=== PATIENT | female | born 1960 | race Caucasian/White ===

== ENCOUNTER 2016-03-01 00:15 | Emergency (ER) | payer MEDICARE ==
[2016-03-01] MEDS ORDERED: PROCHLORPERAZINE EDISYLATE INJ 10 MG/2 ML VIAL IV ONE (02:28)
[2016-03-01] MEDS ORDERED: NORMAL SALINE 1000 ML 1,000 ML IV ONE (02:28)
[2016-03-01 04:13] LABS: ABSOLUTE LYMPHOCYTES (AUTO) 0.6 10^3/uL (0.5-4.7); ABSOLUTE MONOCYTES (AUTO) 0.3 10^3/uL (0.1-1.4); ABSOLUTE NEUT (AUTO) 5.2 10^3/uL (1.7-8.2); BASOPHILS % (AUTO) 0.3 % (0-2); HEMATOCRIT 37.9 % (36.0-47.0); HEMOGLOBIN 12.4 g/dL (12.0-15.5); HGB HCT DIFFERENCE -0.7; LYMPHOCYTES % (AUTO) 9.2 % (13-45); MEAN CORPUSCULAR HEMOGLOBIN 29.4 pg (27.0-33.4); MEAN CORPUSCULAR HGB CONC 32.7 g/dL (32.0-36.0); MEAN CORPUSCULAR VOLUME 90 fl (80-97); MONOCYTES % (AUTO) 4.5 % (3-13); RED BLOOD COUNT 4.21 10^6/uL (3.72-5.28); RED CELL DISTRIBUTION WIDTH 14.1 % (11.5-14.0); WHITE BLOOD COUNT 6.1 10^3/uL (4.0-10.5)
[2016-03-01 04:22] LABS: ALANINE AMINOTRANSFERASE 59 U/L (9-52); ALBUMIN 4.3 g/dL (3.5-5.0); ALKALINE PHOSPHATASE 70 U/L (38-126); ANION GAP 11 (5-19); ASPARTATE AMINO TRANSFERASE 41 U/L (14-36); BILIRUBIN,TOTAL 0.6 mg/dL (0.2-1.3); BLOOD UREA NITROGEN 14 mg/dL (7-20); CALCIUM 9.7 mg/dL (8.4-10.2); CARBON DIOXIDE 29 mmol/L (22-30); CHLORIDE 103 mmol/L (98-107); CREATINE KINASE 80 U/L (30-135); CREATININE RESULT 0.84 mg/dL (0.52-1.25); GLUCOSE 111 mg/dL (75-110); POTASSIUM 4.5 mmol/L (3.6-5.0); TOTAL PROTEIN 7.5 g/dL (6.3-8.2)
[2016-03-01 04:33] LABS: CREATINE KINASE MB 0.79 ng/mL (<4.55)
[2016-03-01 04:34] LABS: TROPONIN I < 0.012 ng/mL
[2016-03-01] MEDS ORDERED: DIPHENHYDRAMINE HCL 50 MG/ML VIAL IV ONE (05:04)
[2016-03-01] MEDS ORDERED: KETOROLAC TROMETHAMINE INJ/PF 30 MG/1 ML SDV IV ONE (05:04)
--- NOTE | 2016-03-01 05:10 | ER Document Report ---
ED Seizure - General Mode of Arrival: Wheelchair Information source: Patient, Relative <MANINDER PEREZ - Last Filed: 03/01/16 06:48> <BRENDACICIJACOBO - Last Filed: 03/01/16 08:33> - General Chief Complaint: Probable Seizure Stated Complaint: POSSIBLE SEIZURE Notes: Patient is a 55-year-old female who presents to the ER today for possible seizure that happened 45 minutes prior to arrival. Patient does have a history of seizures, multiple TIAs, HIV, hypertension, hyperlipidemia and noncompliance with her medications. Daughter states that she informed family that she was "about to have one" and then had a blank stare off to the left side for approximately 3-5 minutes not responding to family members. Daughter states that she usually convulses with her seizures but she did not with this one area and she takes Keppra for her seizures but daughters are unsure if she took hers today. Patient complains of being tired and headache which is normal after her seizures. She also admits to numbness and tingling on the right arm and hand, daughter states that she has had this before. Patient denies any chest pain, shortness of breath, facial weakness or numbness. (MANINDER PEREZ) - Related Data Allergies/Adverse Reactions: Sulfa (Sulfonamide Antibiotics) Adverse Reaction (Severe, Verified 03/01/16 03: 09) Anaphylaxis Home Medications: Current Home Medications Aspirin [Ecotrin 81 mg EC Tablet] 81 mg PO DAILY 03/01/16 [History] Calcium Carbonate/Vitamin D3 [Calcium 600 + Vit D 400 Tablet] 1 tab PO DAILY 06/12 [History] Emtricitabine/Tenofovir [Truvada 200 mg-300 mg Tablet] 1 tab PO DAILY 03/01/16 [ History] Enalapril Maleate [Vasotec 2.5 Mg Tablet] 2.5 mg PO Q12 03/01/16 [History] Levetiracetam [Keppra 500 mg Tablet] 1,000 mg PO Q12 03/01/16 [History] Lopinavir/Ritonavir [Kaletra 200-50 mg Tablet] 2 tab PO BID 03/01/16 [History] Loratadine [Claritin] 10 mg PO DAILY 03/01/16 [History] Pravastatin Sodium [Pravachol] 20 mg PO QHS 03/01/16 [History] Past Medical History - General Information source: Patient, Relative - Social History Smoking Status: Unknown if Ever Smoked Patient has suicidal ideation: No Patient has homicidal ideation: No - Past Medical History Cardiac Medical History: Reports: Hx Hypercholesterolemia, Hx Hypertension Neurological Medical History: Reports: Hx Seizures - Immunizations Hx Diphtheria, Pertussis, Tetanus Vaccination: Yes <MANINDER PEREZ - Last Filed: 03/01/16 06:48> - Social History Family History: Reviewed & Not Pertinent <JACOBO MERCER - Last Filed: 03/01/16 08:33> Review of Systems - Review of Systems Constitutional: No symptoms reported EENT: No symptoms reported Cardiovascular: See HPI Respiratory: No symptoms reported Gastrointestinal: No symptoms reported Genitourinary: No symptoms reported Female Genitourinary: No symptoms reported Musculoskeletal: No symptoms reported Skin: No symptoms reported Hematologic/Lymphatic: No symptoms reported Neurological/Psychological: See HPI <MANINDER PEREZ - Last Filed: 03/01/16 06:48> Physical Exam <MANINDER PEREZ - Last Filed: 03/01/16 06:48> <JACOBO MERCER - Last Filed: 03/01/16 08:33> - Vital signs Vitals: Resp 16 03/01/16 03:00 (MANINDER PEREZ) (JACOBO MERCER) - Notes Notes: PHYSICAL EXAMINATION: GENERAL: Appears uncomfortable, but in no acute distress. HEAD: Atraumatic, normocephalic. EYES: Pupils equal round and reactive to light, extraocular movements intact, sclera anicteric, conjunctiva are normal. NECK: Normal range of motion, supple without lymphadenopathy LUNGS: CTAB and equal. No wheezes rales or rhonchi. HEART: Regular rate and rhythm without murmurs ABDOMEN: Soft, no tenderness. No guarding, no rebound BACK: no vertebral tenderness, normal ROM GI/: no CVA tenderness EXTREMITIES: Normal range of motion, no pitting edema. No cyanosis. NEUROLOGICAL: Alert and oriented to person place and time, answering questions appropriately, good and equal strength bilaterally, no facial weakness, Cranial nerves grossly intact. Normal sensory/motor exams. PSYCH: Flat affect SKIN: Warm, Dry, normal turgor, no rashes or lesions noted (MANINDER PEREZ) Course - Laboratory Result Diagrams: 03/01/16 03:45 03/01/16 03:45 <MANINDER PEREZ - Last Filed: 03/01/16 06:48> - Laboratory Result Diagrams: 03/01/16 03:45 03/01/16 03:45 <JACOBO MERCER - Last Filed: 03/01/16 08:33> - Re-evaluation Re-evalutation: 03/01/16 05:11 Labwork is unremarkable today including a normal white blood cell count and normal cardiac enzymes. EKG reveals a normal sinus rhythm at a rate of 91 bpm without evidence of ischemia or abnormality. CAT scan of the head reports no acute change or pathology. Patient appears to be postictal and I believe it is most likely that she had a seizure. I did order a Keppra level and it is pending. Patient states that she does not feel any better after IV fluids and Compazine so I have ordered Benadryl and Toradol. I've advised her that she needs to take her Keppra as directed. 03/01/16 06:48 Upon discharge patient had developed a fever of 102F. Because of this, her seizure activity today and her history of HIV she needs a lumbar puncture and a septic workup at this time. Dr. Mercer has assumed care of this patient. (MANINDER PEREZ) 03/01/16 08:07 I was notified about febrile HIV patient who is unsure of her medications and is non complaint with medication lumbar puncture was performed , (JACOBO MERCER) - Vital Signs Vital signs: Temp Pulse Resp BP Pulse Ox 102.1 F H 100 18 140/76 H 99 03/01/16 06:24 03/01/16 06:24 03/01/16 06:24 03/01/16 06:24 03/01/16 06:24 (MANINDER PEREZ) (JACOBO MERCER) - Laboratory Laboratory results interpreted by me: 03/01/16 03/01/16 03/01/16 03:45 03:45 04:50 RDW 14.1 H Seg Neutrophils % 86.0 H Lymphocytes % 9.2 L Glucose 111 H AST 41 H ALT 59 H Urine Glucose (UA) 50 H (MANINDER PEREZ) (JACOBO MERCER) Procedures - Lumbar Puncture Lumbar puncture Time completed: 08:00 Consent obtained: Yes Lumbar puncture pre-procedure: Sterile PPE donned, Sterile drapes applied Patient position: Lying Needle size: 22 Lumbar puncture location: L4-L5 Anesthetic type: 1% Lidocaine mL's of anesthetic: 5 Amount/type of drainage: 4 Number of attempts: 2 Complications: No <JACOBO MERCER - Last Filed: 03/01/16 08:33> Critical Care Note <MANINDER PEREZ - Last Filed: 03/01/16 06:48> - Critical Care Note Total time excluding time spent on procedures (mins): 55 <JACOBO MERCER - Last Filed: 03/01/16 08:33> - Critical Care Note Comments: 55 minutes of critical care time spent in direct contact evaluating and reevaluating the patient, treating symptoms, reviewing labs and studies and speaking with family and consultants excluding any procedures (JACOBO MERCER ) Discharge <MANINDER PEREZ - Last Filed: 03/01/16 06:48> <JACOBO MERCER - Last Filed: 03/01/16 08:33> - Discharge Clinical Impression: Seizure, Human immunodeficiency virus (HIV) infection, Meningitis Fever Qualifiers: Fever type: unspecified Qualified Code(s): R50.9 - Fever, unspecified Condition: Stable Disposition: [facility] Additional Instructions: Please take your Keppra as you're supposed to. Return immediately for any new or worsening symptoms. Follow up with primary care provider, call tomorrow to make followup appointment.
[2016-03-01 05:21] LABS: APPEARANCE,URINE CLEAR; BILIRUBIN,URINE NEGATIVE (NEGATIVE); GLUCOSE, URINE 50 mg/dL (NEGATIVE); KETONES,URINE NEGATIVE (NEGATIVE); LEUKOCYTE ESTERASE,URINE NEGATIVE (NEGATIVE); NITRITE,URINE NEGATIVE (NEGATIVE); PROTEIN,URINE NEGATIVE (NEGATIVE); URINE SPECIFIC GRAVITY 1.005; UROBILINOGEN,URINE NEGATIVE mg/dL (<2.0)
[2016-03-01] MEDS ORDERED: LIDOCAINE 1% INJ-PF (10 MG/ML) 30 ML SDV INJ ONE (06:30)
[2016-03-01] MEDS ORDERED: VANCOMYCIN HCL INJ 1000 MG VIAL IV ONE ×2 (07:07→08:00)
[2016-03-01] MEDS ORDERED: AMPHOTERICIN B 50 MG VIAL IV ONE (07:08)
[2016-03-01] MEDS ORDERED: CEFTRIAXONE 2 GM/D5W RTU 50 ML IV ONE (07:08)
[2016-03-01] MEDS ORDERED: ACYCLOVIR SODIUM INJ/PF 500 MG/10 ML SDV IV ONE ×2 (07:08→10:00)
[2016-03-01] MEDS ORDERED: ACETAMINOPHEN 325 MG TABLET PO ONE (08:23)
[2016-03-01 09:20] LABS: RBC AVERAGE 10.5; RBC SIDE 1 10; RBC SIDE 2 11
[2016-03-01 09:21] LABS: RBC DILUENT USED NONE USED; RBC DILUTION FACTOR 1; TOTAL RBC SQUARES COUNTED 225
[2016-03-01 09:22] LABS: WHITE BLOOD CELL,CSF 1 /uL (0-5)
[2016-03-01 09:23] LABS: APPEARANCE ALL TUBES CLEAR
[2016-03-01 09:24] LABS: RBC AVERAGE 7.5; RBC DILUENT USED NONE USED; RBC DILUTION FACTOR 1; RBC SIDE 1 8; RBC SIDE 2 7; TOTAL RBC SQUARES COUNTED 225
[2016-03-01 09:25] LABS: WHITE BLOOD CELL,CSF 1 /uL (0-5)
[2016-03-01 09:26] LABS: APPEARANCE ALL TUBES CLEAR
[2016-03-01] MEDS ORDERED: AMPHOTERICIN B 50 MG VIAL IV SCH (10:00)
[2016-03-01 14:24] VITALS: BP 115/62
--- NOTE | 2016-03-01 15:37 | EKG REPORT ---
SEVERITY:- NORMAL ECG - SINUS RHYTHM IRBBB : Confirmed by: Zhang Lawson 01-Mar-2016 15:36:53
== END 2016-03-01 14:32 | disposition short-term general hospital (02) ==
LOC: ER 00:15
PROC: 009U3ZX Drainage of Spinal Canal, Percutaneous Approach, Diagnostic (ICD-10-PCS; principal; 2016-03-01)
DX: G03.9 Meningitis, unspecified (principal); R56.9 Unspecified convulsions; B20 Human immunodeficiency virus [HIV] disease; Z79.899 Other long term (current) drug therapy; Z86.73 Personal history of transient ischemic attack (TIA), and cerebral infarction without residual deficits; I10 Essential (primary) hypertension; E78.5 Hyperlipidemia, unspecified; Z91.19 Patient's noncompliance with other medical treatment and regimen; E78.00 Pure hypercholesterolemia, unspecified
CPT/HCPCS: 62270; 93005; 99285; 96361; 96375; 96365; 96366; 96367; 36415; 87040; 87070; 87205; 80177; 82553; 87252; 82550; 85025; 89050; 80053; 81001; 84484; 83605; 71010; 70450; 70460; 93010; A9270; J1200; J1885; J0780; J7030; J3370; J0696; 84157; 84166

== ENCOUNTER 2017-05-26 11:44 | Emergency (ER) | payer MEDICARE, MEDICAID ==
[2017-05-26] MEDS ORDERED: ASPIRIN 81 MG TABLET, CHEWABLE PO ONE (12:02)
--- NOTE | 2017-05-26 12:07 | ER Document Report ---
ED Cardiac - General Chief Complaint: Chest Pain Stated Complaint: CHEST PAIN Time Seen by Provider: 05/26/17 12:01 Notes: 56-year-old female to the emergency department complaining of cough and chest pain. History of HIV. On therapy. Has had an upper respiratory infection for the last 2 weeks. Given a round of azithromycin. Currently taking Augmentin. Denies any fever, chills, sweats. Hurts when she takes a deep breath on the left side both in the front and in the back. Occasionally has some pain that goes down her arm. States that she has had a TIA in the past. Was followed in [place] by compensation adjuster as well as neurologist. Takes an aspirin every day. Had a stress test in the last 2 years which was normal. Denies any rash. TRAVEL OUTSIDE OF THE [place] IN LAST 30 DAYS: No - Related Data Allergies/Adverse Reactions: Sulfa (Sulfonamide Antibiotics) Adverse Reaction (Severe, Verified 05/26/17 11: 50) Anaphylaxis Past Medical History - General Information source: Patient - Social History Smoking Status: Never Smoker Frequency of alcohol use: None Drug Abuse: None Lives with: Family Family History: Reviewed & Not Pertinent - Past Medical History Cardiac Medical History: Reports: Hx Hypercholesterolemia, Hx Hypertension Neurological Medical History: Reports: Hx Seizures - Immunizations Hx Diphtheria, Pertussis, Tetanus Vaccination: Yes Review of Systems - Review of Systems Constitutional: No symptoms reported EENT: No symptoms reported Cardiovascular: See HPI, Chest pain Respiratory: Cough. denies: Short of breath, Wheezing Gastrointestinal: No symptoms reported Genitourinary: No symptoms reported Female Genitourinary: No symptoms reported Musculoskeletal: See HPI Skin: No symptoms reported Hematologic/Lymphatic: No symptoms reported Neurological/Psychological: No symptoms reported Physical Exam - Vital signs Vitals: Temp Pulse Resp BP Pulse Ox 97.9 F 73 18 138/72 H 99 05/26/17 11:57 05/26/17 11:57 05/26/17 11:57 05/26/17 11:57 05/26/17 11:57 Interpretation: Normal - General General appearance: Appears well, Alert - HEENT Head: Normocephalic, Atraumatic Eyes: Normal Pupils: PERRL - Respiratory Respiratory status: No respiratory distress Chest status: Nontender Breath sounds: Normal Chest palpation: Normal - Cardiovascular Rhythm: Regular Heart sounds: Normal auscultation Murmur: No Notes: There is some pain with palpation posterior ribs around the scapula as well as anterior costochondral margin when lightly pressing. Patient states this is the pain for which she came in for. - Abdominal Inspection: Normal Distension: No distension Bowel sounds: Normal Tenderness: Nontender Organomegaly: No organomegaly - Back Back: Normal, Nontender - Extremities General upper extremity: Normal inspection, Nontender, Normal color, Normal ROM , Normal temperature General lower extremity: Normal inspection, Nontender, Normal color, Normal ROM , Normal temperature, Normal weight bearing. No: Olivia's sign - Neurological Neuro grossly intact: Yes Cognition: Normal Orientation: AAOx4 [place] Coma Scale Eye Opening: Spontaneous [place] Coma Scale Verbal: Oriented [place] Coma Scale Motor: Obeys Commands [place] Coma Scale Total: 15 Speech: Normal Motor strength normal: LUE, RUE, LLE, RLE Sensory: Normal - Psychological Associated symptoms: Normal affect, Normal mood - Skin Skin Temperature: Warm Skin Moisture: Dry Skin Color: Normal Course - Re-evaluation Re-evalutation: 05/26/17 13:06 This is a well-appearing female in no acute distress. Unlikely this is cardiac as it is reproducible chest pain that is exacerbated by deep breath in this current history of a cough. Will get chest x-ray and cardiac labs but fairly low probability of this being myocardial in origin. Favor more likely a chest wall issue. 05/26/17 14:31 Laboratory studies unremarkable. No evidence of my opinion at this time of any kind of myocardial issues. Clearly reproducible chest wall pain versus lymph labs unremarkable. Patient given an NSAID for pain. I have encouraged her to try the NSAIDs for the next couple of days to see if this will help. Patient advised to return immediately for any worsening symptoms or concerns. - Vital Signs Vital signs: Temp Pulse Resp BP Pulse Ox 97.9 F 73 19 129/68 H 100 05/26/17 11:57 05/26/17 11:57 05/26/17 14:01 05/26/17 14:01 05/26/17 14:01 - Laboratory Result Diagrams: 05/26/17 12:44 05/26/17 12:44 Laboratory results interpreted by me: 05/26/17 05/26/17 12:44 12:44 WBC 3.9 L Carbon Dioxide 31 H Discharge - Discharge Clinical Impression: Anterior chest wall pain Condition: Good Disposition: HOME, SELF-CARE Instructions: Anti-Inflammatory Medication ([facility]), Chest Pain of Unclear Cause ( [facility]) Prescriptions: Ibuprofen [Motrin 600 Mg Tablet] 600 mg PO TID 5 Days #15 tablet Referrals: VIKA KEARNS MD [Primary Care Provider] - Follow up as needed
--- NOTE | 2017-05-26 12:55 | RADIOLOGY REPORT (SQ) ---
EXAM DESCRIPTION: CHEST SINGLE VIEW COMPLETED DATE/TIME: 05/26/2017 12:45 pm REASON FOR STUDY: chest pain, recent uri COMPARISON: 03/01/2016. EXAM PARAMETERS: NUMBER OF VIEWS: One view. TECHNIQUE: Single frontal radiographic view of the chest acquired. RADIATION DOSE: NA LIMITATIONS: None. FINDINGS: LUNGS AND PLEURA: No acute infiltrates or effusions. MEDIASTINUM AND HILAR STRUCTURES: No masses. Contour normal. HEART AND VASCULAR STRUCTURES: Heart normal in size. Normal vasculature. BONES: Dorsal scoliosis convex right. . HARDWARE: None in the chest. OTHER: Chest leads in place. IMPRESSION: No acute disease. TECHNICAL DOCUMENTATION: JOB ID: [id number] [employer]- All Rights Reserved Reading location - IP/workstation name: [email or web address]
[2017-05-26 13:07] LABS: ABSOLUTE MONOCYTES (AUTO) 0.2 10^3/uL (0.1-1.4); ABSOLUTE NEUT (AUTO) 2.6 10^3/uL (1.7-8.2); BASOPHILS % (AUTO) 0.6 % (0-2); EOSINOPHILS % (AUTO) 0.3 % (0-6); HEMATOCRIT 39.4 % (36.0-47.0); HEMOGLOBIN 13.6 g/dL (12.0-15.5); LYMPHOCYTES % (AUTO) 25.6 % (13-45); MEAN CORPUSCULAR HEMOGLOBIN 32.1 pg (27.0-33.4); MEAN CORPUSCULAR HGB CONC 34.4 g/dL (32.0-36.0); MEAN CORPUSCULAR VOLUME 93 fl (80-97); MONOCYTES % (AUTO) 6.1 % (3-13); PLATELET COUNT 235 10^3/uL (150-450); RED BLOOD COUNT 4.23 10^6/uL (3.72-5.28); RED CELL DISTRIBUTION WIDTH 12.3 % (11.5-14.0); SEGMENTED NEUTROPHILS % (AUTO) 67.4 % (42-78); TOTAL CELLS COUNTED % (AUTO) 100 %; WHITE BLOOD COUNT 3.9 10^3/uL (4.0-10.5)
[2017-05-26 13:25] LABS: ALANINE AMINOTRANSFERASE 35 U/L (9-52); ALBUMIN 4.2 g/dL (3.5-5.0); ALKALINE PHOSPHATASE 60 U/L (38-126); ANION GAP 6 (5-19); ASPARTATE AMINO TRANSFERASE 25 U/L (14-36); BILIRUBIN,DIRECT 0.1 mg/dL (0.0-0.4); BILIRUBIN,TOTAL 0.4 mg/dL (0.2-1.3); BLOOD UREA NITROGEN 11 mg/dL (7-20); CALCIUM 9.8 mg/dL (8.4-10.2); CARBON DIOXIDE 31 mmol/L (22-30); CHLORIDE 102 mmol/L (98-107); CREATINE KINASE 56 U/L (30-135); GLUCOSE 103 mg/dL (75-110); POTASSIUM 4.3 mmol/L (3.6-5.0); SODIUM 138.5 mmol/L (137-145); TOTAL PROTEIN 7.1 g/dL (6.3-8.2)
[2017-05-26 13:38] LABS: CREATINE KINASE MB 0.73 ng/mL (<4.55)
[2017-05-26 13:39] LABS: TROPONIN I < 0.012 ng/mL
[2017-05-26 14:13] VITALS: BP 129/68
[2017-05-26] MEDS ORDERED: IBUPROFEN 800 MG TABLET PO ONE (14:31)
[2017-05-26 15:26] LABS: APPEARANCE,URINE CLEAR; BILIRUBIN,URINE NEGATIVE (NEGATIVE); COLOR,URINE COLORLESS; GLUCOSE, URINE NEGATIVE (NEGATIVE); KETONES,URINE NEGATIVE (NEGATIVE); URINE SPECIFIC GRAVITY 1.007
[2017-05-26 15:27] LABS: LEUKOCYTE ESTERASE,URINE NEGATIVE (NEGATIVE); NITRITE,URINE NEGATIVE (NEGATIVE); PROTEIN,URINE NEGATIVE (NEGATIVE); UROBILINOGEN,URINE NEGATIVE mg/dL (<2.0)
--- NOTE | 2017-05-26 17:18 | EKG REPORT ---
SEVERITY:- NORMAL ECG - SINUS RHYTHM : Confirmed by: Eusebio Schwartz MD 26-May-2017 17:17:51
== END 2017-05-26 14:45 | disposition home or self-care (01) ==
LOC: ER 11:44
DX: R07.89 Other chest pain (principal); J06.9 Acute upper respiratory infection, unspecified; R05 Cough; I10 Essential (primary) hypertension; Z21 Asymptomatic human immunodeficiency virus [HIV] infection status; Z86.73 Personal history of transient ischemic attack (TIA), and cerebral infarction without residual deficits; Z79.82 Long term (current) use of aspirin
CPT/HCPCS: 36415; 71045; 80053; 81001; 82550; 82553; 84484; 85025; 93005; 93010; 99285

== ENCOUNTER → 2017-09-03 | Outpatient (CLI) | payer MEDICARE, MEDICAID ==
--- NOTE | 2017-09-17 16:27 | WOMENS IMAGING REPORT ---
EXAM DESCRIPTION: 3D SCREENING MAMMO BILAT COMPLETED DATE/TIME: 09/03/2017 3:09 pm REASON FOR STUDY: BILATER SCREENING MAMM 3D /Z12.31 Z12.31 ENCNTR SCREEN MAMMOGRAM FOR MALIGNANT NE OPLASM OF LIANG COMPARISON: 2017 outside facility TECHNIQUE: Standard craniocaudal and mediolateral oblique views of each breast recorded using digita l acquisition and breast tomosynthesis. LIMITATIONS: None. FINDINGS: Findings present which are benign by mammographic criteria. No suspicious masses, calcifi cations or architectural distortion. Pertinent benign findings: Architectural distortion left at previous biopsy site. Read with the assistance of CAD. .[facility] - R2 Cenova Version 1.3 .[facility] - R2 Cenova Version 1.3 .[facility] - R2 Cenova Version 2.4 .[facility] [place] R2 Cenova Version 2.4 .[facility] - R2 [employer] Version 9.2 Benign mammographic findings may include one or more of the following: Smooth masses, popcorn/rim/co arse calcifications, asymmetries, post-procedure changes, and lesions with long-standing stability. IMPRESSION: BENIGN MAMMOGRAPHIC FINDINGS. BIRADS 2 BREAST DENSITY: b. There are scattered areas of fibroglandular density. BIRAD: 2 BENIGN FINDING(S) RECOMMENDATION: RECOMMENDATION: ROUTINE SCREENING COMMENT: The patient has been notified of the results by letter per SA requirements. Additional no tification policies are in place for contacting patient with suspicious or incomplete findings. Quality ID #[id number]: The [employer] recommends an annual screening mammogram for women aged 40 years or over. This facility utilizes a reminder system to ensure that all patients receive reminder letters, and/or direct phone calls for appointments. This includes reminders for routine scr eening mammograms, diagnostic mammograms, or other Breast Imaging Interventions when appropriate. Th is patient will be placed in the appropriate reminder system. The [employer] (ACR) has developed recommendations for screening MRI of the breast s in certain patient populations, to be used in conjunction with mammography. Breast MRI surveillanc e may be appropriate for women with more than 20% lifetime risk of developing breast cancer as deter mined by genetic testing, significant family history of the disease, or history of mantle radiation f or Hodgkins Disease. ACR Practice Guidelines 2008. DBT Technology DBT is a type of tomographic mammography. With conventional mammography, overlapping breast tissue ma y make lesions difficult to detect, even with good compression. DBT uses an x-ray tube that rotates a round the breast, taking images at different angles. These images are then combined to create thin sl ices of the breast that the radiologist can view as a 3D reconstruction. The [employer] unit can perform full-field digital mammograms (2D imaging); or DBT (3D imaging); or both, in a combination mode that quickly performs both the mammogram and the tomosynthesis scan while the breast is still compressed. PQRS 6045F: Fluoroscopic imaging is not utilized for breast tomosynthesis. TECHNICAL DOCUMENTATION: FINDING NUMBER: (1) ASSESSMENT: (1) JOB ID: [id number] [employer]- All Rights Reserved Reading location - IP/workstation name: [email or web address]
== END ==
LOC: WI 14:51
PROVIDERS: ATTEND Family Medicine
DX: Z12.31 Encounter for screening mammogram for malignant neoplasm of breast (principal)
CPT/HCPCS: 77063; 77067

== ENCOUNTER 2018-01-02 23:53 | Observation (INO) | payer MEDICARE, MEDICAID ==
[2018-01-03] MEDS ORDERED: NORMAL SALINE 1000 ML 1,000 ML IV ONE (00:17)
--- NOTE | 2018-01-03 00:20 | ER Document Report ---
ED NIH Stroke Scale - NIH Stroke Scale *: 1. NIH scale should be completed with appropriate accompanying assessment tools. *: 2. The NIH should reflect what the patient is capable of doing and should not be coached by the clinician. 1a. Level of Consciousness: 0=Alert;keenly responsive -: 1=Drowsy -: 2=Obtunded -: 3=Coma/unresponsive or reflex to noxious stimuli. 1a. Responses: 0 1b. Orientation Questions: a. What month is it? -: b. How old are you? -: 0=Answers both questions correctly. -: 1=Answers one question correctly or patient is intubated or has orotracheal trauma. -: 2=Answers neither question correctly. 1b. Responses: 0 1c. Response to commands: a. Open and close eyes? -: b. Traffic Police Officer and release hand? -: Credit is given despite weakness. Demonstration of task is permitted. Substitute command if hands cannot be used. -: 0=Performs both tasks correctly -: 1=Performs one task correctly -: 2=Performs neither task correctly 1c. Responses: 0 2. Gaze: Establish eye contact and instruct patient to "Follow my finger" -: 0=Normal -: 1=Partial gaze palsy. Gaze is abnormal in one or both eyes, but where forced deviation or total gaze paresis is not present. -: 2=Forced deviation or total gaze paresis. 2. Responses: 0 3. Visual White: Sees fingers in all four quadrants. -: 0=No visual loss. -: 1=Partial hemianopsia. -: 2=Complete hemianopsia. -: 3=Bilateral hemianopsia (including Cortical blindness) 3. Responses: 0 4. Facial Movement: Instruct patient to: -: a. Show me your teeth -: b. Raise your eyebrows -: c. Close your eyes -: d. Smile -: 0=Normal symmetrical movement -: 1=Minor paralysis (flattened nasolabial fold, asymmetry on smiling). -: 2=Partial paralysis (total or near total paralysis of lower face). -: 3=Complete paralysis of upper and lower face 4. Responses: 0 5. Motor functions (left arm): Alternate sides and extend each arm with palms down (90 degrees if sitting or 45 degrees for supine). -: 0=No drift;limb holds for full 10 seconds. -: 1=Drift; limb holds but drifts down before full 10 seconds, but does not hit bed. -: 2=Some effort against gravity; limb cannot get to or maintain position. -: 3=No effort against gravity; limb falls. -: 4=No movement. -: UN=Amputation, joint fusion, explain in comments. 5. Responses (left arm): 0 5. Motor Functions (right arm): Alternate sides and extend each arm with palms down (90 degrees if sitting or 45 degrees for supine). -: 0=No drift;limb holds for full 10 seconds. -: 1=Drift; limb holds but drifts down before full 10 seconds, but does not hit bed. -: 2=Some effort against gravity; limb cannot get to or maintain position. -: 3=No effort against gravity; limb falls. -: 4=No movement. -: UN=Amputation, joint fusion, explain in comments. 5. Responses (right arm): 0 6. Motor Functions (left leg): With patient lying supine, alternate sides and extend each leg (30 degrees always while supine). -: 0=No drift, leg holds position for full 5 seconds -: 1=Drift; leg falls before full 5 seconds but does not hit bed. -: 2=Some effort against gravity, leg falls to bed but some effort against gravity. -: 3=No effort against gravity, leg falls to bed immediately. -: 4=No movement. -: UN=Amputation, joint fusion; explain in comments. 6. Responses (left leg): 0 6. Motor Functions (right leg): With patient lying supine, alternate sides and extend each leg (30 degrees always while supine). -: 0=No drift, leg holds position for full 5 seconds -: 1=Drift; leg falls before full 5 seconds but does not hit bed. -: 2=Some effort against gravity, leg falls to bed but some effort against gravity. -: 3=No effort against gravity, leg falls to bed immediately. -: 4=No movement. -: UN=Amputation, joint fusion; explain in comments. 6. Responses (right leg): 0 7. Limb Ataxia: With eyes open instruct patient to: -: a. "Touch your finger to your nose". -: b. "Touch your heel to your cisneros" -: 0=Absent -: 1=Present in one limb. -: 2=Present in two limbs. -: UN=Amputation or joint fusion; explain in comments. 7. Responses: 0 8. Sensory: Test sensation using pinprick or noxious stimuli. Test as many body parts as possible. -: 0=Normal;no sensory loss -: 1=Mile to moderate sensory loss (patient feels pin prick but is less sharp on affected side). -: 2=Severe or total sensory loss. 8. Responses: 0 9. Best Language: Instruct patient to: -: a. "Describe what you see in this picture." -: b. "Name the items in this picture." -: c. "Read these sentences." -: 0=No aphasia, normal -: 1=Mild to moderate aphasia. -: 2=Severe aphasia -: 3=Mute, global aphasia, no usable speech or auditory comprehension. 9. Responses: 0 10. Articulation, Dysarthia: Instruct patient to: -: "Read these words" or "Repeat these words" -: 0=Normal -: 1=Mild to moderate; patient may slur some words but can be understood without difficulty. -: 2=Severe; patients speech so slurred as to be unintelligible in the absence of dysphasia. -: UN=Intubated or other physical barrier, explain in comments. 10. Responses: 0 11. Extinction or inattention: 0=No abnormality -: 1= Visual, tactile, auditory, spatial, or personal inattention or extinction to bilateral simulation in one or the sensory modalities. -: 2=Profound dav-inattention or dav-inattention to more than one modality; does not recognize own hand. 11. Responses: 0 Total Score: 0
--- NOTE | 2018-01-03 00:26 | ER Document Report ---
ED General - General Chief Complaint: S/S of Possible Stroke Stated Complaint: ARM NUMBNESS Time Seen by Provider: 01/03/18 00:06 Mode of Arrival: Ambulatory Information source: Patient Notes: 57-year-old female with a history of HIV and seizures presents emergency department with right-sided facial numbness and right upper extremity numbness. Patient states that it started at 11 PM. Patient states that she was eating cake when she noticed this. Patient states that her symptoms resolved prior to arriving in the emergency department. Patient currently is having a frontal headache and is feeling lightheaded. Headache is a dull aching sensation. located in the frontal sinus and maxillary sinus. No radiation of the pain. No exacerbating factors. Patient says it feels similar to previous sinus headaches. It's been present for a few days. She's been using flonase for relief. Patient denies any fever, chills, rhinorrhea, sore throat, neck pain, chest pain, shortness of breath. Patient states that she is having intermittent abdominal pain but denies any nausea, vomiting, diarrhea, constipation, dysuria, hematuria. No prior history of CVA. TRAVEL OUTSIDE OF THE [place] IN LAST 30 DAYS: No - HPI Onset: Just prior to arrival Onset/Duration: Sudden Quality of pain: No pain Pain Level: Denies Associated symptoms: Other - lightheaded, headahce Exacerbated by: Denies Relieved by: Denies Similar symptoms previously: No Recently seen / treated by doctor: No - Related Data Allergies/Adverse Reactions: Sulfa (Sulfonamide Antibiotics) Adverse Reaction (Severe, Verified 05/26/17 11: 50) Anaphylaxis Past Medical History - General Information source: Patient - Social History Smoking Status: Former Smoker Family History: Reviewed & Not Pertinent - Past Medical History Cardiac Medical History: Reports: Hx Hypercholesterolemia, Hx Hypertension Neurological Medical History: Reports: Hx Seizures Renal/ Medical History: Denies: Hx Peritoneal Dialysis - Immunizations Hx Diphtheria, Pertussis, Tetanus Vaccination: Yes Review of Systems - Review of Systems Constitutional: No symptoms reported EENT: Sinus pressure Cardiovascular: Lightheaded Respiratory: No symptoms reported Gastrointestinal: No symptoms reported Genitourinary: No symptoms reported Female Genitourinary: No symptoms reported Musculoskeletal: No symptoms reported Skin: No symptoms reported Hematologic/Lymphatic: No symptoms reported Neurological/Psychological: Numbness, Tingling -: Yes All other systems reviewed and negative Physical Exam - Vital signs Vitals: Temp Pulse Resp BP Pulse Ox 97.6 F 98 16 163/78 H 100 01/03/18 00:00 01/03/18 00:00 01/03/18 00:00 01/03/18 00:00 01/03/18 00:00 - Notes Notes: PHYSICAL EXAMINATION: GENERAL: Well-appearing, well-nourished and in no acute distress. HEAD: Atraumatic, normocephalic. EYES: Pupils equal round and reactive to light, extraocular movements intact, conjunctiva are normal. ENT: Nares patent, oropharynx clear without exudates. Moist mucous membranes. Frontal and maxillary sinus tenderness to palpation. NECK: Normal range of motion, supple without lymphadenopathy LUNGS: Breath sounds clear to auscultation bilaterally and equal. No wheezes rales or rhonchi. HEART: Regular rate and rhythm without murmurs ABDOMEN: Soft, nontender, nondistended abdomen. No guarding, no rebound. No masses appreciated. Female : deferred Musculoskeletal: Normal range of motion, no pitting or edema. No cyanosis. NEUROLOGICAL: Cranial nerves grossly intact. Normal speech, normal gait. Normal sensory, motor exams PSYCH: Normal mood, normal affect. SKIN: Warm, Dry, normal turgor, no rashes or lesions noted. Course - Re-evaluation Re-evalutation: 01/03/18 00:27 EKG: Ventricular rate 83, KS interval 148, QRS duration 106, QTc 433, EKG is similar to previous done on 05/26/17. No ST segment elevation. 01/03/18 02:12 Labs and imaging obtained. No acute process identified. Patient is completely asymptomatic in the emergency department. Her NIH stroke score was 0. Patient' s headache resolved on its own. I discussed admission versus discharge with the patient. Patient wants to be admitted for a stroke workup. I spoke with the hospitalist. He is agreeable with admission. Patient is currently stable - Vital Signs Vital signs: Temp Pulse Resp BP Pulse Ox 97.6 F 98 14 175/83 H 100 01/03/18 00:00 01/03/18 00:00 01/03/18 00:13 01/03/18 00:13 01/03/18 00:31 - Laboratory Result Diagrams: 01/03/18 00:32 01/03/18 00:32 Laboratory results interpreted by me: 01/03/18 01/03/18 00:17 00:32 Carbon Dioxide 31 H Est GFR ( Amer) 57 L Est GFR (Non-Af Amer) 47 L Glucose 125 H POC Glucose 125 H Discharge - Discharge Clinical Impression: TIA (transient ischemic attack) Condition: Good Disposition: ADMITTED OBSERVATION Admitting Provider: Hospitalist Unit Admitted: IMCU Referrals: VIKA KEARNS MD [Primary Care Provider] - Follow up as needed
--- NOTE | 2018-01-03 00:31 | RADIOLOGY REPORT (SQ) ---
EXAM DESCRIPTION: CT HEAD WITHOUT IV CONTRAST COMPLETED DATE/TME: 01/03/2018 00:00 CLINICAL HISTORY: 57 years, Female, arm numbness COMPARISON: None. TECHNIQUE: Axial CT images of the brain were obtained without contrast. Sagittal and coronal reformats were performed. DLP 1123 LIMITATIONS: None. FINDINGS: Subcutaneous: Unremarkable. No acute intracranial hemorrhage. There is diffuse cerebral atrophy with severe periventricular and deep white matter hypodensities, which may represent microvascular or radiation changes. 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 No midline shift. No mass effect. Ventricles: No hydrocephalus. [place]-white differentiation preserved. Paranasal sinuses/mastoid air cells: Visualized portions are aerated. Bones/orbits: Visualized portions are unremarkable. IMPRESSION: No CT evidence of acute intracranial hemorrhage. If there is concern for acute infarct, MRI is recommended for further evaluation 2010 [employer]- All Rights Reserved
--- NOTE | 2018-01-03 00:34 | RADIOLOGY REPORT (SQ) ---
EXAM DESCRIPTION: XR CHEST 1 VIEW COMPLETED DATE/TME: 01/03/2018 00:00 CLINICAL HISTORY: 57 years, Female, arm numbness COMPARISON: None. NUMBER OF VIEWS: One TECHNIQUE: AP view of the chest LIMITATIONS: None. FINDINGS: The lungs are clear. The heart is normal in size. There is no pneumothorax or pleural effusion. There is no acute fracture IMPRESSION: No acute cardiopulmonary abnormality 2010 [employer]- All Rights Reserved
[2018-01-03 00:44] LABS: ABSOLUTE LYMPHOCYTES (AUTO) 1.8 10^3/uL (0.5-4.7); ABSOLUTE MONOCYTES (AUTO) 0.4 10^3/uL (0.1-1.4); ABSOLUTE NEUT (AUTO) 4.1 10^3/uL (1.7-8.2); BASOPHILS % (AUTO) 0.5 % (0-2); EOSINOPHILS % (AUTO) 0.6 % (0-6); HEMATOCRIT 42.7 % (36.0-47.0); HEMOGLOBIN 15.3 g/dL (12.0-15.5); LYMPHOCYTES % (AUTO) 27.8 % (13-45); MEAN CORPUSCULAR HEMOGLOBIN 33.2 pg (27.0-33.4); MEAN CORPUSCULAR HGB CONC 35.7 g/dL (32.0-36.0); MEAN CORPUSCULAR VOLUME 93 fl (80-97); MONOCYTES % (AUTO) 6.9 % (3-13); PLATELET COUNT 198 10^3/uL (150-450); RED BLOOD COUNT 4.61 10^6/uL (3.72-5.28); RED CELL DISTRIBUTION WIDTH 12.5 % (11.5-14.0); SEGMENTED NEUTROPHILS % (AUTO) 64.2 % (42-78); TOTAL CELLS COUNTED % (AUTO) 100 %; WHITE BLOOD COUNT 6.3 10^3/uL (4.0-10.5)
[2018-01-03 00:49] LABS: INTERNATIONAL RATION (INR) 0.88
[2018-01-03 00:50] LABS: PARTIAL THROMBOPLASTIN TIME 28.7 SEC (23.5-35.8)
[2018-01-03 00:53] LABS: PROTHROMBIN TIME 12.4 SEC (11.4-15.4)
[2018-01-03 01:03] LABS: ALANINE AMINOTRANSFERASE 26 U/L (9-52); ALBUMIN 4.5 g/dL (3.5-5.0); ALKALINE PHOSPHATASE 65 U/L (38-126); ANION GAP 11 (5-19); ASPARTATE AMINO TRANSFERASE 28 U/L (14-36); BILIRUBIN,DIRECT 0.3 mg/dL (0.0-0.4); BILIRUBIN,TOTAL 0.5 mg/dL (0.2-1.3); BLOOD UREA NITROGEN 20 mg/dL (7-20); CALCIUM 10.2 mg/dL (8.4-10.2); CARBON DIOXIDE 31 mmol/L (22-30); CHLORIDE 103 mmol/L (98-107); CREATINE KINASE 86 U/L (30-135); GLUCOSE 125 mg/dL (75-110); POTASSIUM 3.9 mmol/L (3.6-5.0); SODIUM 144.7 mmol/L (137-145); TOTAL PROTEIN 7.8 g/dL (6.3-8.2)
[2018-01-03 01:14] LABS: CREATINE KINASE MB 1.55 ng/mL (<4.55)
[2018-01-03 01:15] LABS: TROPONIN I < 0.012 ng/mL
[2018-01-03 01:23] LABS: APPEARANCE,URINE SLIGHTLY-CLOUDY; BILIRUBIN,URINE NEGATIVE (NEGATIVE); COLOR,URINE STRAW; GLUCOSE, URINE NEGATIVE (NEGATIVE); KETONES,URINE NEGATIVE (NEGATIVE); LEUKOCYTE ESTERASE,URINE NEGATIVE (NEGATIVE); NITRITE,URINE NEGATIVE (NEGATIVE); PROTEIN,URINE NEGATIVE (NEGATIVE); URINE SPECIFIC GRAVITY 1.014; UROBILINOGEN,URINE NEGATIVE mg/dL (<2.0)
[2018-01-03] MEDS ORDERED: ACETAMINOPHEN 325 MG TABLET PO PRN (02:26)
[2018-01-03] MEDS ORDERED: MAGNESIUM HYDROXIDE SUSP 30 ML UDCUP PO PRN (02:26)
[2018-01-03] MEDS ORDERED: DOCUSATE SODIUM 100 MG CAPSULE PO PRN (02:26)
--- NOTE | 2018-01-03 04:02 | PDOC H&P ---
History of Present Illness Admission Date/PCP: 01/03/18 02:19 VIKA KEARNS MD Patient complains of: Right-sided face and arm numbness History of Present Illness: TRI SALAZAR is a 57 year old female with a past medical history of normal CD4 count HIV, TIA and partial seizures. Patient presents with an abrupt onset of right facial numbness extending to her right shoulder and arm lasting approximately the 1 hour with complete resolution prior to arrival in the emergency room. Patient admits previous episode several years ago with an unremarkable workup. She denies focal weakness, headache, blurred vision, emotional upset or new medications. In the emergency room she has another unremarkable workup but is referred to the hospitalist for observation. Past Medical History Cardiac Medical History: Reports: Hyperlipidema, Hypertension Denies: Atrial Fibrillation Neurological Medical History: Reports: Seizures Social History Information Source: Patient Smoking Status: Former Smoker Frequency of Alcohol Use: None Drugs: None - Advance Directive Resuscitation Status: Full Code Family History Family History: Hypertension Parental Family History Reviewed: Yes Children Family History Reviewed: Yes Sibling(s) Family History Reviewed.: Yes Medication/Allergy Home Medications: Aspirin [Ecotrin 81 mg EC Tablet] 81 mg PO DAILY 03/01/16 Calcium Carbonate/Vitamin D3 [Calcium 600 + Vit D 400 Tablet] 1 tab PO DAILY 06/12 Emtricitabine/Tenofovir (Tdf) [Truvada 200 mg-300 mg Tablet] 1 tab PO DAILY 06/12 Enalapril Maleate [Vasotec 2.5 Mg Tablet] 2.5 mg PO Q12 03/01/16 Levetiracetam [Keppra 500 mg Tablet] 1,000 mg PO Q12 03/01/16 Lopinavir/Ritonavir [Kaletra 200-50 mg Tablet] 2 tab PO BID 03/01/16 Loratadine [Claritin] 10 mg PO DAILY 03/01/16 Pravastatin Sodium [Pravachol] 20 mg PO QHS 03/01/16 Ibuprofen [Motrin 600 Mg Tablet] 600 mg PO TID 5 Days #15 tablet 05/26/17 Allergies/Adverse Reactions: Sulfa (Sulfonamide Antibiotics) Adverse Reaction (Severe, Verified 05/26/17 11: 50) Anaphylaxis Review of Systems Constitutional: ABSENT: chills, fever(s), headache(s), weight gain, weight loss Eyes: ABSENT: visual disturbances Ears: ABSENT: hearing changes Cardiovascular: ABSENT: chest pain, dyspnea on exertion, edema, orthropnea, palpitations Respiratory: ABSENT: cough, hemoptysis Gastrointestinal: ABSENT: abdominal pain, constipation, diarrhea, hematemesis, hematochezia, nausea, vomiting Genitourinary: ABSENT: dysuria, hematuria Musculoskeletal: ABSENT: joint swelling Integumentary: ABSENT: rash, wounds Neurological: ABSENT: abnormal gait, abnormal speech, confusion, dizziness, focal weakness, syncope Psychiatric: ABSENT: anxiety, depression, homidical ideation, suicidal ideation Endocrine: ABSENT: cold intolerance, heat intolerance, polydipsia, polyuria Hematologic/Lymphatic: ABSENT: easy bleeding, easy bruising Physical Exam Vital Signs: Temp Pulse Resp BP Pulse Ox 97.6 F 71 18 134/73 H 100 01/03/18 00:00 01/03/18 03:19 01/03/18 03:19 01/03/18 03:19 01/03/18 03:37 General appearance: PRESENT: no acute distress, well-developed, well-nourished Head exam: PRESENT: atraumatic, normocephalic Eye exam: PRESENT: conjunctiva pink, EOMI, PERRLA. ABSENT: scleral icterus Ear exam: PRESENT: normal external ear exam Mouth exam: PRESENT: moist, tongue midline Neck exam: ABSENT: carotid bruit, JVD, lymphadenopathy, thyromegaly Respiratory exam: PRESENT: clear to auscultation ángel. ABSENT: rales, rhonchi, wheezes Cardiovascular exam: PRESENT: RRR. ABSENT: diastolic murmur, rubs, systolic murmur Pulses: PRESENT: normal dorsalis pedis pul Vascular exam: PRESENT: normal capillary refill GI/Abdominal exam: PRESENT: normal bowel sounds, soft. ABSENT: distended, guarding, mass, organolmegaly, rebound, tenderness Rectal exam: PRESENT: deferred Extremities exam: PRESENT: full ROM. ABSENT: calf tenderness, clubbing, pedal edema Neurological exam: PRESENT: alert, awake, oriented to person, oriented to place , oriented to time, oriented to situation, CN II-XII grossly intact. ABSENT: motor sensory deficit Psychiatric exam: PRESENT: appropriate affect, normal mood. ABSENT: homicidal ideation, suicidal ideation Skin exam: PRESENT: dry, intact, warm. ABSENT: cyanosis, rash Results Impressions: Chest X-Ray 01/03/18 00:00 IMPRESSION: No acute cardiopulmonary abnormality 2010 [employer]- All Rights Reserved Head CT 01/03/18 00:00 IMPRESSION: No CT evidence of acute intracranial hemorrhage. If there is concern for acute infarct, MRI is recommended for further evaluation 2010 [employer]- All Rights Reserved Assessment & Plan - Diagnosis (1) TIA (transient ischemic attack) Is this a current diagnosis for this admission?: Yes Plan: Supportive care, CVA care set (2) HIV (human immunodeficiency virus infection) Is this a current diagnosis for this admission?: Yes Plan: Diagnosed in 2001, normal CD4 count in September 2017, defer to outpatient, continue medication regiment (3) Partial seizure Is this a current diagnosis for this admission?: Yes Plan: Possible source of chief complaint, continue Keppra - Time Time Spent: 50 to 70 Minutes
[2018-01-03 05:41] LABS: CHOLESTEROL 195.23 mg/dL (0-200); TRIGLYCERIDES 62 mg/dL (<150)
[2018-01-03] MEDS: HEPARIN SOD (PORCINE) 5,000 UNIT/ML 1 ML SYRINGE SUBCUT SCH ×3 (05:43→21:40)
[2018-01-03 05:52] LABS: DIRECT LDL 105 mg/dL (<100)
--- NOTE | 2018-01-03 07:32 | EKG REPORT ---
SEVERITY:- NORMAL ECG - SINUS RHYTHM : Confirmed by: Eusebio Schwartz MD 03-Jan-2018 07:31:52
[2018-01-03] MEDS ORDERED: (PENDING PHARMACY ID) (Calcium Carbonate/Vitamin D3 [Calcium 600 + Vit D 400 Tablet] 1 TAB PO SCH (10:00)
[2018-01-03] MEDS ORDERED: ENALAPRIL MALEATE 2.5 MG TABLET PO SCH (10:00)
[2018-01-03] MEDS: CALCIUM CARBONATE 250 MG/VITAMIN D3 125 UNIT TABLET PO SCH ×2 (13:00→18:15)
[2018-01-03] MEDS: LORATADINE 10 MG TABLET PO SCH (13:00)
[2018-01-03] MEDS: ASPIRIN 325 MG TABLET, ENT COATED PO SCH (13:00)
[2018-01-03] MEDS: LEVETIRACETAM 500 MG TABLET PO SCH ×2 (13:04→21:45)
[2018-01-03] MEDS: LANSOPRAZOLE 15 MG TAB.RAP.DR PO SCH (13:04)
--- NOTE | 2018-01-03 14:39 | RADIOLOGY REPORT (SQ) ---
EXAM DESCRIPTION: CAROTID DOPPLER COMPLETED DATE/TIME: 01/03/2018 11:51 am REASON FOR STUDY: tia R73.9 HYPERGLYCEMIA, UNSPECIFIED R53.1 WEAKNESS COMPARISON: CT brain 01/03/2018, 03/01/2016 MRI brain 01/03/2018 TECHNIQUE: Grayscale ultrasound, Doppler velocity and spectra, and color Doppler images acquired of the extra-cranial carotid and vertebral arteries. Images stored on PACS. LIMITATIONS: None. FINDINGS: RIGHT CAROTID CCA Velocities: Within normal limits. Right common carotid peak systolic velocity 1.1 m/sec ICA Velocities Peak systolic 0.65 m/s. End diastolic 0.21 m/s. Proximal ICA/CCA peak systolic ratio 1.0. Spectra normal. No significant plaque. LEFT CAROTID CCA Velocities: Within normal limits. Left common carotid artery peak systolic velocity 1.4 m/sec ICA Velocities Peak systolic 0.8 m/s. End diastolic 0.22 m/s. Proximal ICA/CCA peak systolic ratio 1.0. Spectra normal. No significant plaque. VERTEBRAL ARTERIES: Antegrade flow. Normal waveforms. SUBCLAVIAN ARTERIES: Not evaluated OTHER: No other significant finding. IMPRESSION: NO HEMODYNAMICALLY SIGNIFICANT STENOSIS. COMMENT: Quality ID #[id number]: Velocity criteria are extrapolated from the diameter data as defined by t he Society of Radiologists in Ultrasound Consensus Conference. Radiology 2003: 229; 340-346. TECHNICAL DOCUMENTATION: JOB ID: [id number] [employer]- All Rights Reserved Reading location - IP/workstation name: [email or web address]
--- NOTE | 2018-01-03 16:55 | PDOC PROGRESS REPORT ---
Subjective Progress Note for:: 01/03/18 Subjective:: The patient is a 57-year-old female with a past medical history of hyperlipidemia, hypertension, seizures, TIAs, HIV (with normal CD4 count in September 2017) who was admitted early this morning on 01/03/18 for TIA and symptoms. The patient was seen on afternoon rounds. She was found resting in bed comfortably on room air. She reports that all of her symptoms had resolved prior to her arrival in the emergency department she has not had any recurrence of any concerning symptoms. She denies fever, chills, headache, dizziness, blurred vision, focal deficits/ extremity weakness, chest pain, palpitations, dyspnea, abdominal pain, nausea vomiting and diarrhea. She has no questions or concerns at this time. No concerns per nursing. Reason For Visit: TIA RIGHT FACE ARM NUMBNESS Physical Exam Vital Signs: Temp Pulse Resp BP Pulse Ox 98.2 F 68 16 125/59 L 100 01/03/18 12:29 01/03/18 12:29 01/03/18 12:29 01/03/18 13:02 01/03/18 12:29 Intake & Output 01/02/18 01/03/18 01/04/18 06:59 06:59 06:59 Intake Total 0 275 Output Total 0 Balance 0 275 Weight 53.4 kg General appearance: PRESENT: no acute distress, cooperative, thin, well- developed, well-nourished Head exam: PRESENT: atraumatic, normocephalic Eye exam: PRESENT: conjunctiva pink, EOMI, PERRLA. ABSENT: scleral icterus Ear exam: PRESENT: normal external ear exam Mouth exam: PRESENT: moist, tongue midline Neck exam: ABSENT: carotid bruit, JVD, lymphadenopathy, thyromegaly Respiratory exam: PRESENT: clear to auscultation ángel, symmetrical, unlabored. ABSENT: rales, rhonchi, wheezes Cardiovascular exam: PRESENT: RRR, +S1, +S2. ABSENT: diastolic murmur, rubs, systolic murmur Pulses: PRESENT: normal dorsalis pedis pul Vascular exam: PRESENT: normal capillary refill GI/Abdominal exam: PRESENT: normal bowel sounds, soft. ABSENT: distended, guarding, mass, organolmegaly, rebound, tenderness Rectal exam: PRESENT: deferred Extremities exam: PRESENT: full ROM. ABSENT: calf tenderness, clubbing, pedal edema Neurological exam: PRESENT: alert, awake, oriented to person, oriented to place , oriented to time, oriented to situation, CN II-XII grossly intact. ABSENT: motor sensory deficit Psychiatric exam: PRESENT: anxious, appropriate affect, normal mood. ABSENT: homicidal ideation, suicidal ideation Skin exam: PRESENT: dry, intact, warm. ABSENT: cyanosis, rash Results Laboratory Results: 01/03/18 05:08 Triglycerides 62 Cholesterol 195.23 LDL Cholesterol Direct 105 H VLDL Cholesterol 12.0 HDL Cholesterol 86 Impressions: Chest X-Ray 01/03/18 00:00 IMPRESSION: No acute cardiopulmonary abnormality 2010 [employer]- All Rights Reserved Head CT 01/03/18 00:00 IMPRESSION: No CT evidence of acute intracranial hemorrhage. If there is concern for acute infarct, MRI is recommended for further evaluation 2010 [employer]- All Rights Reserved Carotid Doppler Study 01/03/18 02:28 IMPRESSION: NO HEMODYNAMICALLY SIGNIFICANT STENOSIS. Assessment & Plan - Diagnosis (1) TIA (transient ischemic attack) Is this a current diagnosis for this admission?: Yes Plan: The patient presented with right facial and right upper extremity weakness resolved prior to her arrival to the emergency department and not associated with any other symptoms. Head CT was normal; negative for acute CVA. EKG demonstrated normal sinus rhythm. Chest x-ray was benign. TSH normal at 2.4. A1c 5.2% Lipid panel is acceptable. Carotid Doppler was negative for hemodynamically significant stenosis. Echocardiogram is pending. MRI of the head has been obtained; report not yet available. Continue daily aspirin and statin therapy. Continue to monitor on cardiac telemetry. (2) Hypertension Is this a current diagnosis for this admission?: Yes Plan: Currently normotensive; continue to monitor blood pressures for indications of long-term antihypertensive therapy. Cardiac diet. (3) Hyperlipidemia Is this a current diagnosis for this admission?: Yes Plan: Lipid panel is acceptable. Continue daily statin therapy. (4) HIV (human immunodeficiency virus infection) Is this a current diagnosis for this admission?: Yes Plan: Normal CD4 count as of September 2017. WBCs are normal, patient is afebrile, no indications of opportunistic infections at this time. Continue home medication regiment. (5) Partial seizure Is this a current diagnosis for this admission?: Yes Plan: Possible source of #1. Continue home dose Keppra. - Time Time Spent with patient: 15-24 minutes Medications reviewed and adjusted accordingly: Yes Anticipated discharge: Home Within: within 24 hours - pending MRI results
--- NOTE | 2018-01-03 18:26 | XCELERA REPORT ---
[address] [address] Transthoracic Echocardiogram Report Name: TRI SALAZAR Age: 57 yrs Gender: Female : 1960 Patient Status: Inpatient Patient Location: [address] [place] [address] Study Date: 01/03/2018 09:06 AM Height: 61 in Weight: 114 lb BSA: 1.5 m2 Procedure: A complete two-dimensional transthoracic echocardiogram was performed (2D, M-mode, spectral and color flow Doppler). The study was technically adequate with some images being suboptimal in quality. Reason For Study: tia Ordering Physician: BARRY LOWRY Performed By: Keyanna Webb Interpretation Summary The left ventricular ejection fraction is normal. There is borderline concentric left ventricular hypertrophy. The left ventricle is grossly normal size. LV diastolic function could not be adequately assessed. Wall motion cannot be accurately commented on, but no definite regional wall motion abnormalities noted. The right ventricular systolic function is normal. The right ventricle is grossly normal size. The left atrial size is normal. The right atrium is normal in size There is no mitral regurgitation noted. There is no mitral valve stenosis. There is no aortic valve stenosis No aortic regurgitation is present. No tricuspid regurgitation. There is no tricuspid stenosis. The aortic root is not well visualized but is probably normal size. The inferior vena cava was not well visualized There is no pericardial effusion. MMode/2D Measurements & Calculations RVDd: 2.6 cm LVIDd: 3.9 cm FS: 30.8 % Ao root diam: 2.7 cm IVSd: 0.90 cm LVIDs: 2.7 cm EDV(Teich): 65.9 ml Ao root area: 5.7 cm2 LVPWd: 0.90 cm ESV(Teich): 27.0 ml LA dimension: 2.5 cm EF(Teich): 59.0 % Doppler Measurements & Calculations MV E max sahara: MV P1/2t max sahara: Ao V2 max: LV V1 max P.9 cm/sec 84.9 cm/sec 117.0 cm/sec 3.9 mmHg MV A max sahara: MV P1/2t: 55.6 msec Ao max P.5 mmHg LV V1 max: 72.6 cm/sec MVA(P1/2t): 4.0 cm2 98.2 cm/sec MV E/A: 1.2 MV dec slope: 447.0 cm/sec2 MV dec time: 0.19 sec PA V2 max: TR max sahara: MV P1/2t-pr_phl: 69.6 cm/sec 223.0 cm/sec 56.0 msec PA max PG: TR max P.9 mmHg 1.9 mmHg Left Ventricle The left ventricle is grossly normal size. There is borderline concentric left ventricular hypertrophy. The left ventricular ejection fraction is normal. LV diastolic function could not be adequately assessed. Wall motion cannot be accurately commented on, but no definite regional wall motion abnormalities noted. Right Ventricle The right ventricle is grossly normal size. There is normal right ventricular wall thickness. The right ventricular systolic function is normal. Atria The right atrium is normal in size. The left atrial size is normal. Interarterial septum not well visualized and not well dopplered. Cannot comment on ASD/PFO presence. Mitral Valve The mitral valve is grossly normal. There is no mitral valve stenosis. There is no mitral regurgitation noted. Aortic Valve The aortic valve is normal in structure and functions normally. There is no aortic valve stenosis. No aortic regurgitation is present. Tricuspid Valve The tricuspid valve is not well visualized, but is grossly normal. There is no tricuspid stenosis. No tricuspid regurgitation. Pulmonic Valve The pulmonic valve is not well visualized. Great Vessels The aortic root is not well visualized but is probably normal size. The inferior vena cava was not well visualized. Effusions There is no pericardial effusion. Incidental Findings No definite cardiac source of CVA/TIA noted on this particular trans-thoracic study. Consider SEAN if clinically indicated. May consider mobile cardiac telemetry monitoring (MCT) for ruling out transient AFIB. : BARRY LOWRY > Zhang Lawson
--- NOTE | 2018-01-03 18:27 | RADIOLOGY REPORT (SQ) ---
EXAM DESCRIPTION: MRI HEAD WITHOUT COMPLETED DATE/TIME: 01/03/2018 9:01 am REASON FOR STUDY: r sided numbness R73.9 HYPERGLYCEMIA, UNSPECIFIED R53.1 WEAKNESS COMPARISON: CT brain 03/01/2016, 01/03/2018 TECHNIQUE: Multiplanar imaging includes non-contrasted T1, T2, FLAIR, and diffusion with ADC map seq uences. Images stored on PACS. LIMITATIONS: None. FINDINGS: ANATOMY: No developmental anomalies. Normal vascular flow voids. Pituitary fossa normal. CSF SPACES: Normal in size and contour. No hemorrhage. CEREBRUM: No MR evidence of acute ischemic change. No intracranial hemorrhage, mass effect, or midli ne shift. 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 This is similar compared to the prior studies dating back to 03/01/2016. There is focal encephalomalacia high over the left posterior frontal convexity from old infarct. Thi s is unchanged from prior studies. POSTERIOR FOSSA: Spotty increased FLAIR/ T2 signal in the mid nydia from small vessel disease for phys ical encephalopathy. Is chronic in appearance. No acute hemorrhage. No edema, masses or mass effect. Internal auditory canals, cerebello-pontine angles, mastoids normal. DIFFUSION IMAGING: Negative for acute or sub-acute infarction. ORBITS: No masses. Globes normal. PARANASAL SINUSES: No fluid levels. Mucosa normal. OTHER: No other significant finding. IMPRESSION: No acute ischemic change. 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 This is stable compared to prio r CT exams dating back to 03/01/2016. Patient has a history of HIV. 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 EVIDENCE OF ACUTE STROKE: NO. TECHNICAL DOCUMENTATION: JOB ID: [id number] [email or web address]- All Rights Reserved Reading location - IP/workstation name: [email or web address]
[2018-01-03] MEDS ORDERED: ATORVASTATIN CALCIUM 80 MG TABLET PO SCH (22:00)
[2018-01-04] MEDS: HEPARIN SOD (PORCINE) 5,000 UNIT/ML 1 ML SYRINGE SUBCUT SCH ×2 (05:16→13:26)
[2018-01-04] MEDS: LANSOPRAZOLE 15 MG TAB.RAP.DR PO SCH (05:18)
[2018-01-04] MEDS ORDERED: (PENDING PHARMACY ID) (Emtricitabine/Tenofov Alafenam [Descovy 200-25 Mg Tablet] 1 TAB) PO SCH (08:00)
[2018-01-04] MEDS ORDERED: (PENDING PHARMACY ID) (Dolutegravir Sodium [Tivicay] 50 MG) PO SCH (08:00)
[2018-01-04] MEDS: LEVETIRACETAM 500 MG TABLET PO SCH (09:37)
[2018-01-04] MEDS: LORATADINE 10 MG TABLET PO SCH (10:13)
[2018-01-04] MEDS: ASPIRIN 325 MG TABLET, ENT COATED PO SCH (10:13)
--- NOTE | 2018-01-04 14:11 | PDOC DISCHARGE SUMMARY ---
General - Admit/Disc Date/PCP Admission Date/Primary Care Provider: 01/03/18 02:19 VIKA KEARNS MD Discharge Date: 01/04/18 - Discharge Diagnosis (1) TIA (transient ischemic attack) Is this a current diagnosis for this admission?: Yes Summary: The patient presented with right facial and right upper extremity weakness resolved prior to her arrival to the emergency department and not associated with any other symptoms. Head CT was normal; negative for acute CVA. EKG demonstrated normal sinus rhythm. Chest x-ray was benign. TSH normal at 2.4. A1c 5.2% Lipid panel is acceptable. Carotid Doppler was negative for hemodynamically significant stenosis. Echocardiogram demonstrated a normal LVEF and otherwise unremarkable study. 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 The patient met with the field coordinator and was provided information regarding TIAs and stress reduction. She was advised to continue her daily aspirin and statin therapies. She was instructed to follow-up with her primary care provider within 1 week and to return to the emergency department immediately for any concerning symptoms. At time of discharge, the patient has been asymptomatic throughout her stay, maintained a normal sinus rhythm, and was stable for discharge to home. (2) Hypertension Is this a current diagnosis for this admission?: Yes Summary: Resolved. (3) Hyperlipidemia Is this a current diagnosis for this admission?: Yes Summary: Lipid panel is acceptable, she is recommended to continue her daily statin therapy. (4) HIV (human immunodeficiency virus infection) Is this a current diagnosis for this admission?: Yes Summary: WBCs were normal, patient was afebrile without indications of opportunistic infections. Her home antiviral regiment was continued. I spoke with the physician at the [facility] infectious disease clinic to discuss her case prior to discharge. He kindly confirmed that her viral count was undetectable and CD4 count greater than 600 at her last visit in September 2017. 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 Recommendations are for the patient to continue her current antiviral regiment and to call the clinic after discharge to arrange for a follow-up visit sooner than her currently scheduled one in March 2018. (5) Partial seizure Is this a current diagnosis for this admission?: Yes Summary: Possible source of #1. She is recommended to continue her home dose Keppra. - Additional Information Resuscitation Status: Full Code Discharge Diet: Regular Discharge Activity: Activity As Tolerated Home Medications: Aspirin [Ecotrin 81 mg EC Tablet] 81 mg PO DAILY 03/01/16 Calcium Carbonate/Vitamin D3 [Calcium 600 + Vit D 400 Tablet] 1 tab PO BID 03/01 Levetiracetam [Keppra 500 mg Tablet] 1,000 mg PO Q12 03/01/16 Loratadine [Claritin] 10 mg PO DAILY 03/01/16 Acetaminophen [Tylenol 325 mg Tablet] 650 mg PO Q4HP PRN tablet 01/03/18 Aspirin [Ecotrin 325 mg EC Tablet] 325 mg PO DAILY tabec 01/03/18 Atorvastatin Calcium [Lipitor 80 mg Tablet] 80 mg PO QHS tablet 01/03/18 Dolutegravir Sodium [Tivicay] 50 mg PO QAM 01/03/18 Emtricitabine/Tenofov Alafenam [Descovy 200-25 mg Tablet] 1 tab PO QAM 01/03/18 Ibandronate Sodium [Boniva] 150 mg PO Q30D 01/03/18 Omeprazole 20 mg PO DAILY 01/03/18 History of Present Illness History of Present Illness: Per H&P by Dr. Mcnamara: TRI SALAZAR is a 57 year old female with a past medical history of normal CD4 count HIV, TIA and partial seizures. Patient presents with an abrupt onset of right facial numbness extending to her right shoulder and arm lasting approximately the 1 hour with complete resolution prior to arrival in the emergency room. Patient admits previous episode several years ago with an unremarkable workup. She denies focal weakness, headache, blurred vision, emotional upset or new medications. In the emergency room she has another unremarkable workup but is referred to the hospitalist for observation. Physical Exam Vital Signs: Temp Pulse Resp BP Pulse Ox 97.2 F 68 18 129/66 H 100 01/04/18 11:05 01/04/18 11:05 01/04/18 11:05 01/04/18 11:05 01/04/18 11:05 Intake & Output 01/03/18 01/04/18 01/05/18 06:59 06:59 06:59 Intake Total 0 768 237 Output Total 0 Balance 0 768 237 Weight 53.4 kg 53.2 kg General appearance: PRESENT: no acute distress, cooperative, well-developed, well-nourished Head exam: PRESENT: atraumatic, normocephalic Eye exam: PRESENT: conjunctiva pink, EOMI, PERRLA. ABSENT: scleral icterus Ear exam: PRESENT: normal external ear exam Mouth exam: PRESENT: moist, tongue midline Neck exam: ABSENT: carotid bruit, JVD, lymphadenopathy, thyromegaly Respiratory exam: PRESENT: clear to auscultation ángel, symmetrical, unlabored. ABSENT: rales, rhonchi, wheezes Cardiovascular exam: PRESENT: RRR, +S1, +S2. ABSENT: diastolic murmur, rubs, systolic murmur Pulses: PRESENT: normal dorsalis pedis pul Vascular exam: PRESENT: normal capillary refill GI/Abdominal exam: PRESENT: normal bowel sounds, soft. ABSENT: distended, guarding, mass, organolmegaly, rebound, tenderness Rectal exam: PRESENT: deferred Extremities exam: PRESENT: full ROM. ABSENT: calf tenderness, clubbing, pedal edema Neurological exam: PRESENT: alert, awake, oriented to person, oriented to place , oriented to time, oriented to situation, CN II-XII grossly intact. ABSENT: motor sensory deficit Psychiatric exam: PRESENT: appropriate affect, normal mood. ABSENT: homicidal ideation, suicidal ideation Skin exam: PRESENT: dry, intact, warm. ABSENT: cyanosis, rash Results Impressions: Chest X-Ray 01/03/18 00:00 IMPRESSION: No acute cardiopulmonary abnormality 2010 [employer]- All Rights Reserved Head CT 01/03/18 00:00 IMPRESSION: No CT evidence of acute intracranial hemorrhage. If there is concern for acute infarct, MRI is recommended for further evaluation 2010 [employer]- All Rights Reserved Head MRI 01/03/18 00:00 IMPRESSION: No acute ischemic change. Old left posterior frontal cortical and subcortical white matter infarct, unchanged from prior studies Extensive white matter disease confluent throughout the hemispheres. This is stable compared to prior CT exams dating back to 03/01/2016. Patient has a history of HIV. 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 EVIDENCE OF ACUTE STROKE: NO. Carotid Doppler Study 01/03/18 02:28 IMPRESSION: NO HEMODYNAMICALLY SIGNIFICANT STENOSIS. Qualifiers - * PATIENT BEING DISCHARGED WITH ANY OF THE FOLLOWING DIAGNOSIS: No Plan Discharge Plan: Continue home medication regimen unchanged. Follow-up with primary care provider within 1 week. Follow-up with [facility] infectious disease as directed. Time Spent: Less than 30 Minutes
[2018-01-04 14:24] VITALS: BP 163/78
[2018-01-04] MEDS ORDERED: CALCIUM CARBONATE 250 MG/VITAMIN D3 125 UNIT TABLET PO SCH (17:00)
== END 2018-01-04 14:45 | disposition home or self-care (01) ==
LOC: ER 23:53 → EH 01-03 02:19 → 3S 01-03 04:05
PROVIDERS: ADMIT Internal Medicine; ATTEND Internal Medicine
DX: G45.9 Transient cerebral ischemic attack, unspecified (principal); R90.82 White matter disease, unspecified; I10 Essential (primary) hypertension; E78.5 Hyperlipidemia, unspecified; B20 Human immunodeficiency virus [HIV] disease; G40.89 Other seizures; R10.9 Unspecified abdominal pain; Z79.82 Long term (current) use of aspirin; Z79.899 Other long term (current) drug therapy; Z82.49 Family history of ischemic heart disease and other diseases of the circulatory system; Z87.891 Personal history of nicotine dependence; Z23 Encounter for immunization
CPT/HCPCS: 93005; 99285; 96360; 36415; 82553; 82962; 82550; 84443; 85025; 85610; 85730; 80053; 81001; 84484; 83036; 80061; 93306; 93880; 70551; 71045; 70450; 90686; 93010; G0378 ×3; A9270 ×7; J3490 ×2; J7030

== ENCOUNTER 2018-08-24 16:20 | Emergency (ER) | payer MEDICARE, MEDICAID ==
--- NOTE | 2018-08-24 17:05 | ER Document Report ---
ED Medical Screen (RME) - General Chief Complaint: General Weakness Stated Complaint: SEEING SPOTS OF LIGHT,HEADACHE Time Seen by Provider: 08/24/18 16:55 Primary Care Provider: VIKA KEARNS MD [Primary Care Provider] - Follow up as needed Mode of Arrival: Ambulatory Information source: Patient Notes: Patient presents emergency department with multiple symptoms to include numbness and tingling. Feeling weak. Feeling like a strobe light in her eyes. Patient reports she has had these symptoms before they ruled out a TIA but she is had a more frequently this week. Patient has a history of seizures and is HIV positive. She reports her Tcell counts are normal her provider is in [place]. Denies cough congestion fever vomiting diarrhea is. I have greeted and performed a rapid initial assessment of this patient. A comprehensive ED assessment and evaluation of the patient, analysis of test results and completion of the medical decision making process will be conducted by additional ED providers. Dictation of this chart was performed using voice recognition software; therefore, there may be some unintended grammatical errors. TRAVEL OUTSIDE OF THE [place] IN LAST 30 DAYS: No - Related Data Allergies/Adverse Reactions: Sulfa (Sulfonamide Antibiotics) Adverse Reaction (Severe, Verified 05/26/17 11:50) Anaphylaxis Past Medical History - Social History Chew tobacco use (# tins/day): No Frequency of alcohol use: None Drug Abuse: None - Past Medical History Cardiac Medical History: Reports: Hx Hypercholesterolemia, Hx Hypertension Denies: Hx Atrial Fibrillation Neurological Medical History: Reports: Hx Seizures Renal/ Medical History: Denies: Hx Peritoneal Dialysis Psychiatric Medical History: Denies: Hx Depression - Immunizations Hx Diphtheria, Pertussis, Tetanus Vaccination: Yes Physical Exam - Vital signs Vitals: Temp Pulse Resp BP Pulse Ox 97.7 F 91 22 H 150/88 H 96 08/24/18 16:28 08/24/18 16:28 08/24/18 16:28 08/24/18 16:28 08/24/18 16:28 Course - Vital Signs Vital signs: Temp Pulse Resp BP Pulse Ox 97.7 F 91 22 H 150/88 H 96 08/24/18 16:28 08/24/18 16:28 08/24/18 16:28 08/24/18 16:28 08/24/18 16:28 Doctor's Discharge - Discharge Referrals: VIKA KEARNS MD [Primary Care Provider] - Follow up as needed
[2018-08-24 17:31] LABS: ABSOLUTE LYMPHOCYTES (AUTO) 0.9 10^3/uL (0.5-4.7); ABSOLUTE MONOCYTES (AUTO) 0.3 10^3/uL (0.1-1.4); ABSOLUTE NEUT (AUTO) 5.5 10^3/uL (1.7-8.2); BASOPHILS % (AUTO) 0.3 % (0-2); EOSINOPHILS % (AUTO) 0.1 % (0-6); HEMATOCRIT 43.2 % (36.0-47.0); HEMOGLOBIN 14.8 g/dL (12.0-15.5); LYMPHOCYTES % (AUTO) 13.5 % (13-45); MEAN CORPUSCULAR HEMOGLOBIN 31.4 pg (27.0-33.4); MEAN CORPUSCULAR HGB CONC 34.2 g/dL (32.0-36.0); MEAN CORPUSCULAR VOLUME 92 fl (80-97); MONOCYTES % (AUTO) 4.7 % (3-13); PLATELET COUNT 209 10^3/uL (150-450); RED BLOOD COUNT 4.71 10^6/uL (3.72-5.28); RED CELL DISTRIBUTION WIDTH 13.2 % (11.5-14.0); SEGMENTED NEUTROPHILS % (AUTO) 81.4 % (42-78); TOTAL CELLS COUNTED % (AUTO) 100 %; WHITE BLOOD COUNT 6.7 10^3/uL (4.0-10.5)
[2018-08-24 17:42] LABS: APPEARANCE,URINE CLEAR; BILIRUBIN,URINE NEGATIVE (NEGATIVE); COLOR,URINE COLORLESS; GLUCOSE, URINE NEGATIVE (NEGATIVE); KETONES,URINE NEGATIVE (NEGATIVE); LEUKOCYTE ESTERASE,URINE NEGATIVE (NEGATIVE); NITRITE,URINE NEGATIVE (NEGATIVE); PROTEIN,URINE NEGATIVE (NEGATIVE); URINE SPECIFIC GRAVITY 1.002; UROBILINOGEN,URINE NEGATIVE mg/dL (<2.0)
[2018-08-24 17:47] LABS: ALANINE AMINOTRANSFERASE 26 U/L (9-52); ALBUMIN 5.1 g/dL (3.5-5.0); ALKALINE PHOSPHATASE 67 U/L (38-126); ANION GAP 9 (5-19); ASPARTATE AMINO TRANSFERASE 28 U/L (14-36); BILIRUBIN,DIRECT 0.2 mg/dL (0.0-0.4); BILIRUBIN,TOTAL 0.6 mg/dL (0.2-1.3); BLOOD UREA NITROGEN 10 mg/dL (7-20); CALCIUM 10.5 mg/dL (8.4-10.2); CARBON DIOXIDE 29 mmol/L (22-30); CHLORIDE 103 mmol/L (98-107); GLUCOSE 99 mg/dL (75-110); POTASSIUM 3.9 mmol/L (3.6-5.0); SODIUM 141.1 mmol/L (137-145); TOTAL PROTEIN 8.7 g/dL (6.3-8.2)
[2018-08-24 18:03] LABS: FREE T3 4.95 pg/mL (2.77-5.27); FREE T4 (FREE THYROXINE) 1.29 ng/dL (0.78-2.19)
[2018-08-24 18:17] LABS: THYROID STIMULATING HORMONE 1.63 uIU/mL (0.47-4.68)
--- NOTE | 2018-08-24 19:02 | ER Document Report ---
ED General - General Chief Complaint: General Weakness Stated Complaint: SEEING SPOTS OF LIGHT,HEADACHE Time Seen by Provider: 08/24/18 16:55 Primary Care Provider: VIKA KEARNS MD [Primary Care Provider] - Follow up as needed Mode of Arrival: Ambulatory Notes: Patient is a 57-year-old female with a past medical history of HIV with a history of HIV leukoencephalopathy, presents with complaints of seeing spots in her vision, having a mild headache and feeling some numbness and/or tingling to her bilateral upper extremities and low back. States that this started several hours ago and has since completely resolved. She and her daughter note that she has a long-standing history of similar symptoms although she does not usually get the spots in her vision which prompted concern and made them come to the emergency department today. At the time of my assessment the patient has no symptoms of any kind. No exacerbating or alleviating factors and present. Denies any visual acuity changes at this time. Denies any headache. Symptoms came on gradually, were regarding his mild to moderate in nature. Has not seen her primary care physician regarding today's concerns but does have a neurologist with whom she follows. No nausea, vomiting, focal weakness, speech impairment, fever or constitutional symptoms TRAVEL OUTSIDE OF THE [place] IN LAST 30 DAYS: No - Related Data Allergies/Adverse Reactions: Sulfa (Sulfonamide Antibiotics) Adverse Reaction (Severe, Verified 05/26/17 11:50) Anaphylaxis Past Medical History - General Information source: Patient - Social History Smoking Status: Never Smoker Chew tobacco use (# tins/day): No Frequency of alcohol use: None Drug Abuse: None Lives with: Family Family History: Hypertension Patient has suicidal ideation: No Patient has homicidal ideation: No - Past Medical History Cardiac Medical History: Reports: Hx Hypercholesterolemia, Hx Hypertension Denies: Hx Atrial Fibrillation Neurological Medical History: Reports: Hx Seizures Renal/ Medical History: Denies: Hx Peritoneal Dialysis Psychiatric Medical History: Denies: Hx Depression - Immunizations Hx Diphtheria, Pertussis, Tetanus Vaccination: Yes Review of Systems - Review of Systems Notes: Constitutional: Negative for fever. HENT: Negative for sore throat. Eyes: Negative for visual changes. Cardiovascular: Negative for chest pain. Respiratory: Negative for shortness of breath. Gastrointestinal: Negative for abdominal pain, vomiting or diarrhea. Genitourinary: Negative for dysuria. Musculoskeletal: Negative for back pain. Skin: Negative for rash. Neurological: Negative for headaches, positive for tingling to the bilateral upper extremities and low back 10 point ROS negative except as marked above and in HPI. Physical Exam - Vital signs Vitals: Temp Pulse Resp BP Pulse Ox 97.7 F 91 22 H 150/88 H 96 08/24/18 16:28 08/24/18 16:28 08/24/18 16:28 08/24/18 16:28 08/24/18 16:28 Interpretation: Hypertensive Notes: PHYSICAL EXAMINATION: GENERAL: Well-appearing, well-nourished and in no acute distress. HEAD: Atraumatic, normocephalic. EYES: Pupils equal round and reactive to light, extraocular movements intact, sclera anicteric, conjunctiva are normal. ENT: nares patent, oropharynx clear without exudates. Moist mucous membranes. NECK: Normal range of motion, supple without lymphadenopathy LUNGS: Breath sounds clear to auscultation bilaterally and equal. No wheezes rales or rhonchi. HEART: Regular rate and rhythm without murmurs ABDOMEN: Soft, nontender, normoactive bowel sounds. No guarding, no rebound. No masses appreciated. EXTREMITIES: Normal range of motion, no pitting or edema. No cyanosis. NEUROLOGICAL: Face symmetric. Tongue protrudes midline. Extraocular motions intact. Pupils are 2 mm and equally reactive. Normal speech, normal gait. 5 out of 5 strength in both the distal and proximal upper and lower extremities bilaterally. Sensation is grossly intact throughout. Finger to nose testing normal. Pronator drift normal. PSYCH: Normal mood, normal affect. SKIN: Warm, Dry, normal turgor, no rashes or lesions noted. Course - Re-evaluation Re-evalutation: 08/24/18 19:06 Patient presents with complaints of bilateral upper extremity tingling as well as tingling to the low back and spotting in her vision which started earlier t [place]yan[place] and has now completely resolved. Patient has a long-standing history of similar symptoms in the past and the only difference today is that she had some spotting of her vision. History is not consistent with a seizure, TIA, CVA. Suspect likely secondary to patient's underlying HIV leukoencephalopathy. She has a long-standing history of the same symptoms and I have advised that she continues to follow with her neurologist. At the time of my assessment she has no focal neurologic deficits. NIH stroke scale is 0. She is already taking aspirin. I do not believe it would be appropriate to proceed with repeat neuroimaging as it I do not clinically suspect an intracranial mass, subarach noid hemorrhage, or any alternative acute neurologic pathology which would be better clarified by this imaging modality. At this time will discharge with return precautions and follow-up recommendations. Verbal discharge instructions given a the bedside and opportunity for questions given. Medication warnings reviewed. Patient is in agreement with this plan and has verbalized understanding of return precautions and the need for primary care follow-up in the next 24-72 hours. - Vital Signs Vital signs: Temp Pulse Resp BP Pulse Ox 97.7 F 91 22 H 150/88 H 96 08/24/18 16:28 08/24/18 16:28 08/24/18 16:28 08/24/18 16:28 08/24/18 16:28 - Laboratory Result Diagrams: 08/24/18 17:14 08/24/18 17:14 Laboratory results interpreted by me: 08/24/18 08/24/18 08/24/18 17:14 17:14 17:14 Seg Neutrophils % 81.4 H Est GFR (Non-Af Amer) 58 L Calcium 10.5 H Total Protein 8.7 H Albumin 5.1 H Urine Blood SMALL H Discharge - Discharge Clinical Impression: HIV leukoencephalopathy Hypertension Qualifiers: Hypertension type: unspecified Qualified Code(s): I10 - Essential (primary) hypertension Condition: Good Disposition: HOME, SELF-CARE Additional Instructions: The exact cause of your symptoms is uncertain but does not appear to be from a life-threatening cause. Return to the emergency department immediately if you develop nausea, vomiting, severe headache, focal weakness, focal numbness, changes in her vision, fever greater than 100.4 F, or any other symptoms that are worrisome to you. Referrals: VIKA KEARNS MD [Primary Care Provider] - Follow up as needed
[2018-08-24 19:34] VITALS: BP 98/75
== END 2018-08-24 19:33 | disposition home or self-care (01) ==
LOC: ER 16:20
DX: B20 Human immunodeficiency virus [HIV] disease (principal); G93.49 Other encephalopathy; I10 Essential (primary) hypertension; R53.1 Weakness; R51 Headache; R20.0 Anesthesia of skin
CPT/HCPCS: 36415; 80053; 81001; 83735; 84439; 84443; 84481; 85025; 99284

== ENCOUNTER → 2018-12-20 | Outpatient (CLI) | payer MEDICARE, MEDICAID ==
--- NOTE | 2018-12-20 15:09 | WOMENS IMAGING REPORT ---
EXAM DESCRIPTION: 3D SCREENING MAMMO BILAT COMPLETED DATE/TIME: 12/20/2018 2:01 pm REASON FOR STUDY: Z12.31 SCREENING MAMMO Z12.39 ENCOUNTER FOR [facility] SCREENING FOR MALIGNANT NEOPLASM OF COMPARISON: 2017 EXAM PARAMETERS: Views: Standard craniocaudal and mediolateral oblique views of each breast recorded using digital acquisition and breast tomosynthesis. Read with the assistance of CAD. .[facility] - Trunk Archive Destination Coordinator Version 9.2 LIMITATIONS: None. FINDINGS: No suspicious masses, suspicious calcifications or architectural distortion. No areas of c oncern. IMPRESSION: NEGATIVE MAMMOGRAM. BIRADS 1. BREAST DENSITY: b. There are scattered areas of fibroglandular density. BIRAD: ASSESSMENT: 1 NEGATIVE RECOMMENDATION: ROUTINE SCREENING Please continue yearly bilateral screening mammography/tomosynthesis in November 2019 COMMENT: The patient has been notified of the results by letter per [place] requirements. Additional no tification policies are in place for contacting patient with suspicious or incomplete findings. Quality ID #[id number]: The [employer] recommends an annual screening mammogram for women aged 40 years or over. This facility utilizes a reminder system to ensure that all patients receive reminder letters, and/or direct phone calls for appointments. This includes reminders for routine scr eening mammograms, diagnostic mammograms, or other Breast Imaging Interventions when appropriate. Th is patient will be placed in the appropriate reminder system. TECHNICAL DOCUMENTATION: FINDING NUMBER: (1) ASSESSMENT: (1) JOB ID: [id number] [employer]- All Rights Reserved Reading location - IP/workstation name: [email or web address]
== END ==
LOC: WI 13:15
PROVIDERS: ATTEND Family Medicine
DX: Z12.31 Encounter for screening mammogram for malignant neoplasm of breast (principal)
CPT/HCPCS: 77063; 77067

== ENCOUNTER 2019-08-23 15:31 | Emergency (ER) | payer MEDICARE, MEDICAID ==
[2019-08-23] MEDS ORDERED: ACETAMINOPHEN 325 MG TABLET PO ONE (16:30)
--- NOTE | 2019-08-23 17:26 | ER Document Report ---
HPI - HPI Time Seen by Provider: 08/23/19 16:23 Pain Level: 2 Context: Patient is a 58-year-old female who presents to the emergency department with a chief complaint of right low back pain. Patient states that she slippeds, and slid down some stairs today. States that it was only a few stairs. Patient has been able to walk, but continues to have pain. Denies hitting her head. Denies confusion. Denies neck pain. Denies any dysuria, weakness, headache, blurred vision, chest pain, abdominal pain, or any other symptoms at this time. - ROS Systems Reviewed and Negative: Yes All other systems reviewed and negative - CONSTITUTIONAL Constitutional: DENIES: Fever, Chills - EENT EENT: DENIES: Sore Throat, Ear Pain, Nasal Drainage-Clear, Nasal Drainage- Purulent, Congestion, Eye problems - NEURO Neurology: DENIES: Headache, Weakness, Vision blurred - CARDIOVASCULAR Cardiovascular: DENIES: Chest pain - RESPIRATORY Respiratory: DENIES: Trouble Breathing, Coughing - GASTROINTESTINAL Gastrointestinal: DENIES: Abdominal Pain, Nausea, Patient vomiting, Diarrhea - URINARY Urinary: DENIES: Dysuria - MUSCULOSKELETAL Musculoskeletal: REPORTS: Back Pain - Right low - DERM Skin Color: Normal Skin Problems: None Past Medical History - Social History Smoking Status: Never Smoker Chew tobacco use (# tins/day): No Frequency of alcohol use: None Drug Abuse: None Family History: Hypertension - Past Medical History Cardiac Medical History: Reports: Hx Hypercholesterolemia, Hx Hypertension Denies: Hx Atrial Fibrillation Neurological Medical History: Reports: Hx Seizures Renal/ Medical History: Denies: Hx Peritoneal Dialysis Psychiatric Medical History: Denies: Hx Depression - Immunizations Hx Diphtheria, Pertussis, Tetanus Vaccination: Yes Vertical Provider Document - CONSTITUTIONAL Agree With Documented VS: Yes Exam Limitations: No Limitations General Appearance: No Apparent Distress - INFECTION CONTROL TRAVEL OUTSIDE OF THE [place] IN LAST 30 DAYS: No - HEENT HEENT: Atraumatic, Normocephalic, PERRLA - NECK Neck: Normal Inspection - RESPIRATORY Respiratory: Breath Sounds Normal, No Respiratory Distress - CARDIOVASCULAR Cardiovascular: Regular Rate, Regular Rhythm Pulses: Normal: Radial - GI/ABDOMEN Gastrointestinal: Abdomen Soft, Abdomen Non-Tender - MUSCULOSKELETAL/EXTREMETIES Musculoskeletal/Extremeties: FROM, Tender - Right low back, No Edema. negative: Eccymosis - NEURO Level of Consciousness: Awake, Alert, Appropriate Motor/Sensory: No Motor Deficit, No Sensory Deficit - DERM Integumentary: Warm, Dry, No Rash Course - Re-evaluation Re-evalutation: 08/23/19 X-ray is unremarkable, other than chronic changes, noted by the radiology and reviewed by myself. Discussed the chronic changes with the patient. They recommend physical therapy. Advised the patient to take Tylenol, as this is the safest medication for her to take. She will follow-up with her primary care provider. I have a low suspicion for an acute stroke, ND, abdominal etiology, urinary tract infection, or any other life-threatening etiology at this time. This was a mechanical fall. She is in agreement with this plan. Patient expressed gratefulness for her care. Follow-up precautions were given. Verbal discharge instructions were given to the patient. They verbalized understanding. They are stable for discharge. - Vital Signs Vital signs: Temp Pulse Resp BP Pulse Ox 98.9 F 82 16 133/66 H 98 08/23/19 15:38 08/23/19 15:38 08/23/19 15:38 08/23/19 15:38 08/23/19 15:38 Discharge - Discharge Clinical Impression: Fall Qualifiers: Encounter type: initial encounter Qualified Code(s): W19.XXXA - Unspecified fall, initial encounter Right low back pain Qualifiers: Chronicity: acute Sciatica presence: without sciatica Qualified Code(s): M54.5 - Low back pain Condition: Stable Disposition: HOME, SELF-CARE Additional Instructions: Your seen today in the emergency department after a fall. Your x-ray is normal. There are chronic changes noted on your x-ray. I recommend physical therapy. Follow-up with your primary care provider regards to this visit. You can take Tylenol 1000 mg every 6 hours as needed for your pain. Referrals: VIKA KEARNS MD [Primary Care Provider] - Follow up in 3-5 days
--- NOTE | 2019-08-23 17:29 | RADIOLOGY REPORT (SQ) ---
EXAM DESCRIPTION: L SPINE WHOLE IMAGES COMPLETED DATE/TIME: 08/23/2019 3:51 pm REASON FOR STUDY: fall; back pain COMPARISON: None. NUMBER OF VIEWS: Five views including obliques. TECHNIQUE: AP, lateral, oblique, and sacral radiographic images acquired of the lumbar spine. LIMITATIONS: None. FINDINGS: MINERALIZATION: Normal. SEGMENTATION: Normal. No transitional anatomy. ALIGNMENT: Normal. VERTEBRAE: No acute fracture or loss of vertebral body height. Small marginal osteophytes at the end plates. No lytic or blastic bone lesion. DISCS: Multilevel degenerative disc disease with loss of intervertebral disc height. POSTERIOR ELEMENTS: Pedicles and facets are intact. No pars defect or posterior arch defects. There is facet arthropathy at L5-S1. HARDWARE: None in the spine. PARASPINAL SOFT TISSUES: There is a radiopaque foreign body along the left paraspinous region which a ppears to be a radiopaque marking strip perhaps on a lap pad. This is in 2 projections on the right oblique and lateral view however is not seen on the AP view or other oblique view and may be external to the patient. Clinical correlation is recommended. PELVIS: Intact as visualized. No fractures or worrisome bone lesions. SI joints intact. OTHER: No other significant finding. IMPRESSION: No acute fracture or dislocation of the lumbar spine. Mild degenerative disc disease an d facet arthropathy. TECHNICAL DOCUMENTATION: JOB ID: [id number] [employer]- All Rights Reserved Reading location - IP/workstation name: [email or web address]
[2019-08-23 18:26] VITALS: BP 104/75
== END 2019-08-23 18:28 | disposition home or self-care (01) ==
LOC: ER 15:31
DX: M54.5 Low back pain (principal); W10.9XXA Fall (on) (from) unspecified stairs and steps, initial encounter; M51.36 Other intervertebral disc degeneration, lumbar region; I10 Essential (primary) hypertension
CPT/HCPCS: 99283; 72110; A9270